=== PATIENT | female | born 1975 | race Caucasian/White ===

== ENCOUNTER 2024-07-07 13:46 | Outpatient (REF) | payer MEDICAID, SELFPAY ==
--- NOTE | ~2024-07-07 | CT_ITS ---
EXAMINATION: CT CHEST WITH IV CONTRAST INDICATION: possible medial RUL nodule incidentally seen on cervical CT; +smoker COMPARISON: There are no prior studies available for comparison. TECHNIQUE: Helical CT scan of the chest was performed following administration of intravenous contrast. Coronal and sagittal reformatted images were generated and reviewed. This CT exam was performed with one or more of the following dose reduction techniques: automated exposure control, adjustment of the mA and/or kV according to patient size, use of iterative reconstruction technique. DLP: 130 mGy-cm CHEST: THYROID: The thyroid is unremarkable. LUNGS: The lungs are clear. No pulmonary nodules or airspace opacities are identified. MEDIASTINUM: There is no mediastinal lymphadenopathy. Triangular soft tissue density in the anterior mediastinum is consistent with residual thymus. NORBERTO: There is no hilar lymphadenopathy. CARDIOVASCULATURE: The heart is normal in size. There is no pericardial effusion. The thoracic aorta is normal in caliber. DEGREE OF CORONARY CALCIFICATION: none PLEURA: There is no pleural effusion. No pneumothorax. MAIN AIRWAYS: The mainstem bronchi and proximal branches are patent. AXILLA: There is no axillary lymphadenopathy. BONES AND SOFT TISSUES: Bilateral breast implants are noted. There is evidence of intracapsular rupture of the left breast implant. The bones are intact. UPPER ABDOMEN: The visualized portions of the liver, spleen, and adrenals are unremarkable. CT/CT chest w IV con IMPRESSION: 1. No pulmonary nodules are identified. 2. Intracapsular rupture of a left breast implant. Electronically signed by: Naeem Reis MD 07/07/2024 03:26 PM [facility]
[2024-07-07] MEDS: iohexoL 350 MG/ML 75 ML INFUS..BTL 65 ML IV (15:15)
--- OUTSIDE RECORDS SUMMARY | 2024-07-07 16:02 | XMS_ITS | Clinical Summary ---
Author Organization [employer] [facility] ity Address [address] [place] [address] Care Team Providers Care Coloring Checker Name Role Phone Unavailable Primary Care Provider Unavailabl e Social History Tobacco Use Types Packs/Day Years Used Date Smoking Tobacco: Never Assessed Sex and Gender Information Value Date Recorded Sex Assigned at Not on file Gender Identity Not on file Sexual Orientation Not on file Plan of Treatment Health Maintenance Due Date Last Done Comments Breast Cancer Screening 1975 DTaP,Tdap,and Td Vaccines (1 - Tdap) 10/19/1994 Hepatitis B Vaccines (1 of 3 - 19+ 3-dose series) 10/19/1994 Cervical Cancer Screening: P ap Smear 10/19/1996 Colorectal Cancer Screening: Colonoscopy 07/04/2023 Depression Screening 07/04/2023 HIV Screening 07/04/2023 Hepatitis C Screening 07/04/2023 Social Influencers of Health Screening 07/04/2023 COVID-19 Vaccine (2023-2 5 season) 2024 Influenza Vaccine (#1) 2024 HIB Vaccines Aged Out No longer eligi ble based on patient's age to complete this topic HPV Vaccines Aged Out No longer eligi ble based on patient's age to complete this topic Hepatitis A Vaccines Aged Out No long er eligible based on patient's age to complete this topic IPV Vaccines Aged Out No longer eligi ble based on patient's age to complete this topic MMR Vaccines Aged Out No longer eligi ble based on patient's age to complete this topic Meningococcal ACWY Vaccine Aged Out N o longer eligible based on patient's age to complete this topic Pneumococcal Vaccine: Pediat rics (0 to 5 Years) and At-Risk Patients (6 to 64 Years) Aged Out No longer eligible b ased on patient's age to complete this topic RSV Immunization Patients Un renetta 20 months Aged Out No longer eligible b ased on patient's age to complete this topic Varicella Vaccines Aged Out No longer eligible based on patient's age to complete this topic
--- OUTSIDE RECORDS SUMMARY | 2024-07-07 16:02 | XMS_ITS | Clinical Summary ---
Author Organization [employer] Address [address] [place] [address] [address] [place] [address] Care Team Providers Care Logistics Intern Name Role Phone Mago Sanchez Primary Care Provider [phone] Medications No known medications Active Problems Problem Noted Date Diagnosed Date H/O: hysterectomy 08/11/2023 Smokes cigarettes 08/11/2023 Overview (08/11/2023): Started 06/10 PPD Social History Tobacco Use Types Packs/Day Years Used Date Smoking Tobacco: Every Day Cigarettes Smokeless Tobacco: Never Tobacco Cessation:Ready to Q uit: Not Asked; Counseling Given: Not Answered Comments Unknown Sex and Gender Information Value Date Recorded Sex Assigned at Female 04/08/2022 10:20 AM EDT Legal Sex Female 10:20 AM EDT Gender Identity Female 04/08/2022 10:20 AM EDT Sexual Orientation Choose not to disclose 2021 10:20 AM EDT Last Filed Vital Signs Vital Sign Reading Time Taken Comments Blood Pressure 132/84 09/18/2021 12:04 AM EDT Pulse 72 09/18/2021 12:04 AM EDT Temperature - - Respiratory Rate - - Oxygen Saturation - - Inhaled Oxygen Concentration - - Weight 80.2 kg (176 lb 12.8 oz) 022 12:04 AM EDT Height 165.1 cm (5' 5 ) 09/18/2021 12:0 4 AM EDT Body Mass Index 29.42 09/18/2021 12:04 AM EDT Plan of Treatment Health Maintenance Due Date Last Done Comments CT Colonography 1975 Colonoscopy 1975 Colorectal Cancer Screening 1975 Depression Screening 1975 FIT DNA/Cologuard 1975 FIT 1975 FOBT 1975 HIV Screening 1975 Lipid Panel 1975 SDOH Screening 1975 Sigmoidoscopy 1975 Alcohol/Substance Use Screening 1987 Family Planning (PISQ) 10/19/1990 Hepatitis C Screening 10/19/1993 Hepatitis B Vaccines (1 of 3 - 19+ 3-dose series) 10/19/1994 Pneumococcal Vaccine: Pediatrics (0 to 5 Years) and At-Risk Patients (6 to 49) Years) (1 of 2 - PCV) 10/19/1994 Pap Smear 10/19/1996 Cervical Cancer Screening 10/19/2005 HPV/Cotest 10/19/2005 Mammogram 2015 COVID-19 Vaccine (3 - 2023-2 5 season) 2024 09/19/2021, 08/29/2021 Influenza Vaccine (#1) 2024 Tobacco Screening 08/10/2024 08/11/2023 Zoster Vaccines (1 of 2) 10/19/2025 DTaP/Tdap/Td Vaccines (2 - T d or Tdap) 09/19/2031 09/18/2021 RSV Patients and Patients Aged 60 years or older (1 - 1-dose 75+ series) 10/19/2050 HIB Vaccines Aged Out No longer eligi [...] patient's age to complete this topic Meningococcal Vaccine Aged Out No jelly pete eligible based on patient's age to complete this topic RSV under 20 months Aged Out No longe r eligible based on patient's age to complete this topic Rotavirus Vaccines Aged Out No longer eligible based on patient's age to complete this topic Procedures Procedure Name Priority Date/Time Associated Diagnosis Comments CT CHEST W CONTRAST Urgent 07/07/2024 2 :[address] scan from Last 3 Months Results * CT Chest w/ Contrast (07/07/2024 2:19 PM EST) Anatomical Region Laterality Modality Body, Chest Computed Tomogra phy 07/07/2024 2:19 PM EST Narrative 07/07/2024 3:28 PM EST ? [facility] ?[address] ?[place] [address] ? CT Scan Report ? Signed ? Patient: [place],Clemencia ?MR#: [id number] ?? 89 ? : 1975 ?Acct:[id number] ? Age/Sex: 48 / F ?ADM Date: 07/07/24 ? Loc: HO.CT ? Attending Dr: Mago Sanchez NP ? Ordering Physician: MAGO SANCHEZ NP ?? Date of Service: 07/07/24 ?? Procedure(s): CT chest w IV con ?? Accession Number(s): [id number] ? cc: MAGO SANCHEZ NP ? Report Number: ?? [id number]: Total DLP = ??130.00 mGy-cm ?? EXAMINATION: CT CHEST WITH IV CONTRAST ? INDICATION: possible medial RUL nodule incidentally seen on cervical ?? CT; +smoker ? COMPARISON: There are no prior studies available for comparison. ? TECHNIQUE: Helical CT scan of the chest was performed following ?? administration of intravenous contrast. ??Coronal and sagittal ?? reformatted images were generated and reviewed. ? This CT exam was performed with one or more of the following dose ?? reduction techniques: automated exposure control, adjustment of the mA ?? and/or kV according to patient size, use of iterative reconstruction ?? technique. ? DLP: 130 mGy-cm ? CHEST: ? THYROID: The thyroid is unremarkable. ? LUNGS: The lungs are clear. No pulmonary nodules or airspace opacities ?? are identified. ? MEDIASTINUM: There is no mediastinal lymphadenopathy. Triangular soft ?? tissue density in the anterior mediastinum is consistent with residual ?? thymus. ? NORBERTO: There is no hilar lymphadenopathy. ? CARDIOVASCULATURE: The heart is normal in size. ??There is no ?? pericardial effusion. ??The thoracic aorta is normal in caliber. ? DEGREE OF CORONARY CALCIFICATION: ??none ? PLEURA: ??There is no pleural effusion. ??No pneumothorax. ? MAIN AIRWAYS: The mainstem bronchi and proximal branches are patent. ? AXILLA: There is no axillary lymphadenopathy. ? BONES AND SOFT TISSUES: Bilateral breast implants are noted. There is ?? evidence of intracapsular rupture of the left breast implant. The bones ?? are intact. ? UPPER ABDOMEN: The visualized portions of the liver, spleen, and ?? adrenals are unremarkable. ? CT/CT chest w IV con ?? IMPRESSION: ? 1. No pulmonary nodules are identified. ? 2. Intracapsular rupture of a left breast implant. ? Electronically signed by: ??Naeem Reis MD ??07/07/2024 03:26 PM EST ? Dictated By: ?Naeem Reis MD ? Signed By: ?<Electronically signed by Naeem Reis MD in OV> ?07/07/24 1526 ? DD/ 1419 ? TD/TT: 07/07/24 1430 ? Lap Hand Tool: ? Procedure Note Poli, Image - 07/07/[address] [place] [address] [address] Scan Report Signed Patient: Katey Roy#: [id number] 89 : 1975Acct:[id number] Age/Sex: 48 / FADM Date: 07/07/24 Loc: .CT Attending Dr: Mago Sanchez NP Ordering Physician: MAGO SANCHEZ NP Date of Service: 07/07/24 Procedure(s): CT chest w IV con Accession Number(s): [id number] cc: MAGO SANCHEZ NP Report Number: [id number]: Total DLP = 130.00 mGy-cm EXAMINATION: CT CHEST WITH IV CONTRAST INDICATION: possible medial RUL nodule incidentally seen on cervical CT; +smoker COMPARISON: There are no prior studies available for comparison. TECHNIQUE: Helical CT scan of the chest was performed following administration of intravenous contrast. Coronal and sagittal reformatted images were generated and reviewed. This CT exam was performed with one or more of the following dose reduction techniques: automated exposure control, adjustment of the mA and/or kV according to patient size, use of iterative reconstruction technique. DLP: 130 mGy-cm CHEST: THYROID: The thyroid is unremarkable. LUNGS: The lungs are clear. No pulmonary nodules or airspace opacities are identified. MEDIASTINUM: There is no mediastinal lymphadenopathy. Triangular soft tissue density in the anterior mediastinum is consistent with residual thymus. NORBERTO: There is no hilar lymphadenopathy. CARDIOVASCULATURE: The heart is normal in size. There is no pericardial effusion. The thoracic aorta is normal in caliber. DEGREE OF CORONARY CALCIFICATION: none PLEURA: There is no pleural effusion. No pneumothorax. MAIN AIRWAYS: The mainstem bronchi and proximal branches are patent. AXILLA: There is no axillary lymphadenopathy. BONES AND SOFT TISSUES: Bilateral breast implants are noted. There is evidence of intracapsular rupture of the left breast implant. The bones are intact. UPPER ABDOMEN: The visualized portions of the liver, spleen, and adrenals are unremarkable. CT/CT chest w IV con IMPRESSION: 1. No pulmonary nodules are identified. 2. Intracapsular rupture of a left breast implant. Electronically signed by: Naeem Reis MD 07/07/2024 03:26 PM EST Dictated By: Naeem Reis MD Signed By: <Electronically signed by Naeem Reis MD in OV> 07/07/24 1526 DD/ 1419 TD/TT: 07/07/24 1430 Lap Hand Tool: [facility] CT PROCEDURES Edited Result - Final from Last 3 Months Insurance [facility] C3 HSN FULL Care Teams Logistics Intern Relationship Specialty Start Date End Date Mago Sanchez ANP [address] [place] [id number] PCP - General Family Medicine 09/18/21
--- OUTSIDE RECORDS SUMMARY | 2024-07-07 16:02 | XMS_ITS | Encounter Summary ---
Author Organization [employer] Address [address] [facility] [address] [place] [address] Care Team Providers Care Groundskeeping Maintenance Name Role Phone Litzy Paula Primary Care Provider [phone] Encounter Details Date Type Department Care Team (Late st Contact Info) Description 01/26/2024 Telephone [facility] [address] [place], [place] [phone] Litzy Paula ANP [address] [place] [address] Social History Tobacco Use Types Packs/Day Years Used Date Smoking Tobacco: Every Day Cigarettes Smokeless Tobacco: Never Comments Unknown Sex and Gender Information Value Date Recorded Sex Assigned at Female 04/08/2022 10:20 AM EDT Legal Sex Female 10:20 AM EDT Gender Identity Female 04/08/2022 10:20 AM EDT Sexual Orientation Choose not to disclose 2021 10:20 AM EDT documented as of this encounter Miscellaneous Notes * Telephone Encounter - Meeta Beaulieu - 01/26/2024 12:06 PM EDT Tc from [facility] with [facility] calling to inform they receive the order for Ct, however pt has [employer] for insurance and insurance does not cover. States they are unable to do the CT order . Any question please contact [phone]. documented in this encounter Plan of Treatment Not on file documented as of this encounter Visit Diagnoses Not on filedocumented in this encounter Care Teams Groundskeeping Maintenance Relationship Specialty Start Date End Date Litzy Paula ANP [address] [place] [address] [phone] PCP - General Family Medicine 09/18/21 documented as of this encounter
== END 2024-07-07 13:47 | disposition home or self-care (01) ==
LOC: HO.CT 13:46
PROVIDERS: PCP Nurse Practitioner Primary Care; Visit Provider Nurse Practitioner Primary Care
DX: R91.1 Solitary pulmonary nodule (principal); R93.89 Abnormal findings on diagnostic imaging of other specified body structures
CPT/HCPCS: 71260; Q9967

== ENCOUNTER → 2024-07-07 13:48 | Outpatient (BNV) | payer MEDICAID, SELFPAY | PROVIDERS: PCP Nurse Practitioner Primary Care; Visit Provider Radiology Diagnostic Radiology | DX: T85.43XA Leakage of breast prosthesis and implant, initial encounter (principal) | CPT/HCPCS: 71260 ==